=== PATIENT | male | born 1970 | race Caucasian/White ===

== ENCOUNTER 2017-10-17 04:04 | Emergency (ER) | payer BC ==
[~2017-10-17] VITALS: Ht 177.8 cm; Wt 65.8 kg
--- NOTE | 2017-10-17 04:24 | NUR ---
PT STATES HE BELIEVES HE IS HAVING A POSSIBLE ANXIETY/PANIC ATTACK. STATES HE HAD ONE "A FEW YEARS AGO." HE DENIES EVER TAKING ANY MEDICATIONS FOR THIS. bREATHING EVEN AND UNLABORED.
[2017-10-17] MEDS ORDERED: ONDANSETRON 4 MG/2 ML VIAL ONE (04:59)
[2017-10-17] MEDS: IV NORMAL SALINE 1000 ML BAG IV ONE (05:02)
[2017-10-17] MEDS: ONDANSETRON 4 MG/2 ML VIAL IV ONE (05:03)
[2017-10-17 05:12] LABS: BASOPHILS % (AUTO) 0.3 % (0.0-2.0); EOSINOPHILS # (AUTO) 0.1 K/uL (0.0-0.7); EOSINOPHILS % (AUTO) 1.4 % (0.0-7.0); HEMATOCRIT 43.7 % (36.7-47.1); HEMOGLOBIN 14.7 g/dL (12.5-16.3); LYMPHOCYTES # (AUTO) 1.7 K/uL (20.0-40.0); LYMPHOCYTES % (AUTO) 24.5 % (20.5-51.5); MEAN CORPUSCULAR HEMOGLOBIN 28.6 uug (23.8-33.4); MEAN CORPUSCULAR HGB CONC 34 g/dL (32.5-36.3); MONOCYTES # (AUTO) 0.4 K/uL (2.0-10.0); MONOCYTES % (AUTO) 5.7 % (0.0-11.0); NEUTROPHILS # (AUTO) 4.6 K/uL (1.8-8.9); NEUTROPHILS % (AUTO) 68.1 % (38.5-71.5); PLATELET COUNT (AUTO) 207 K/uL (152-348); RED BLOOD CELL COUNT(AUTO) 5.14 MIL/uL (4.06-5.63); WHITE BLOOD COUNT (AUTO) 6.8 K/uL (3.6-10.2)
[2017-10-17 05:14] LABS: POTASSIUM 3.6 mmol/L (3.5-5.1)
[2017-10-17 05:27] LABS: BILIRUBIN,DIRECT 0.1 mg/dL (0.0-0.2); BILIRUBIN,TOTAL 0.4 mg/dL (0.2-1.0); TOTAL PROTEIN, SERUM 7.1 g/dL (6.4-8.2)
--- NOTE | 2017-10-17 05:59 | NUR ---
Patient admitted to having much less anxiety upon discharge. Patient discharged to home in stable conditon. Written and verbal after care instructions given. Patient verbalizes understanding of instructions. Patient had peripheral IV removed. Patient able to ambulate unassisted with steady gait. Patient left with all personal belongings.
[2017-10-17 06:06] VITALS: BP 118/59
== END 2017-10-17 06:02 | disposition home or self-care (01) ==
LOC: ER 04:14
DX: F41.9 Anxiety disorder, unspecified (principal); G47.00 Insomnia, unspecified; R00.2 Palpitations
CPT/HCPCS: 36415; 70030-TC; 71045; 85025; 93005; A4663; J2405; J7030

== ENCOUNTER 2019-04-21 00:32 | Emergency (ER) | payer BC, OTHER ==
[~2019-04-21] VITALS: Ht 180.3 cm; Wt 70.3 kg
--- NOTE | 2019-04-21 00:50 | NUR ---
Patient ambulated with stable gait. A/Ox4. Patient came for c/o RLE pain and swelling [place]. Denies any sob. All pulses palpable. Full range of motion noted.
--- NOTE | 2019-04-21 00:56 | NUR ---
ERMD at bedside for MSe
--- NOTE | 2019-04-21 01:37 | NUR ---
US An oconnor, at bedside for scan
--- NOTE | 2019-04-21 02:52 | NUR ---
SHAZIA is on the phone with the [employer], he wanted to speak to An regarding what she had recorded and sent.
[2019-04-21] MEDS ORDERED: IBUPROFEN 600 MG TABLET PO ONE (03:15)
[2019-04-21] MEDS ORDERED: IBUPROFEN 600 MG TABLET ONE (03:19)
[2019-04-21 03:35] LABS: BASOPHILS % (AUTO) 0.6 % (0.0-2.0); EOSINOPHILS # (AUTO) 0.1 K/uL (0.0-0.7); EOSINOPHILS % (AUTO) 2.2 % (0.0-7.0); HEMATOCRIT 42.5 % (36.7-47.1); HEMOGLOBIN 14.7 g/dL (12.5-16.3); LYMPHOCYTES # (AUTO) 1.4 K/uL (20.0-40.0); LYMPHOCYTES % (AUTO) 25.9 % (20.5-51.5); MEAN CORPUSCULAR HEMOGLOBIN 30.8 uug (23.8-33.4); MEAN CORPUSCULAR HGB CONC 35 g/dL (32.5-36.3); MEAN CORPUSCULAR VOLUME 89.3 fL (73.0-96.2); MONOCYTES # (AUTO) 0.5 K/uL (2.0-10.0); MONOCYTES % (AUTO) 8.9 % (0.0-11.0); NEUTROPHILS # (AUTO) 3.4 K/uL (1.8-8.9); NEUTROPHILS % (AUTO) 62.4 % (38.5-71.5); PLATELET COUNT (AUTO) 168 K/uL (152-348); RED BLOOD CELL COUNT(AUTO) 4.76 MIL/uL (4.06-5.63); WHITE BLOOD COUNT (AUTO) 5.4 K/uL (3.6-10.2)
[2019-04-21 03:38] LABS: POTASSIUM 3.5 mmol/L (3.5-5.1)
[2019-04-21 03:43] LABS: BILIRUBIN,TOTAL 0.5 mg/dL (0.2-1.0); TOTAL PROTEIN, SERUM 6.8 g/dL (6.4-8.2)
[2019-04-21 04:00] VITALS: BP 115/79
--- NOTE | 2019-04-21 04:00 | NUR ---
Patient discharged to home in stable conditon. Written and verbal after care instructions given. Patient verbalizes understanding of instructions. Patient ambulated with stable gait. NAD
== END 2019-04-21 04:01 | disposition home or self-care (01) ==
LOC: ER 00:34
DX: S80.11XA Contusion of right lower leg, initial encounter (principal); I80.01 Phlebitis and thrombophlebitis of superficial vessels of right lower extremity; X58.XXXA Exposure to other specified factors, initial encounter; Y93.89 Activity, other specified; Y92.89 Other specified places as the place of occurrence of the external cause; Y99.8 Other external cause status
CPT/HCPCS: 36415; 85025; 85730; A4663